=== PATIENT | female | born 1995 | race African-American/Black ===

== ENCOUNTER 2020-11-21 08:36 | Emergency (ER) | payer OTHER, SELFPAY ==
[2020-11-21 08:48] VITALS: BP 124/84; PULSE 90; RESP 20; TEMP 38.2; O2SAT 99
[2020-11-21] MEDS: KETOROLAC 30 MG/ML VIAL (*BKC) IV PUSH (09:19)
[2020-11-21] MEDS: ONDANSETRON INJ 4 MG/2 ML VIAL IV PUSH (09:20)
[2020-11-21] MEDS: SODIUM CHLORIDE 0.9% IV 1,000 ML 999 ML IV CONT (09:22)
[2020-11-21 09:47] LABS: Basophils Percent Auto 0.4 % (0.2-1.2); Eosinophils Percent Auto 0.4 % (0-4.4); Hematocrit 40.8 % (37.0-47.0); Hemoglobin 12.3 g/dL (12.0-15.0); Immature Granulocyte Absolute 0.01 K/mm3 (0.00-0.031); Immature Granulocyte Percent A 0.4 % (0-0.5); Lymphocytes Absolute Auto 1.08 K/mm3 (0.9-3.2); Lymphocytes Percent Auto 38.7 % (18.3-44.2); Mean Corpuscular HGB Conc 30.1 g/dl (32-36); Mean Corpuscular Hemoglobin 24.7 pg (26-34); Mean Corpuscular Volume 82.1 fl (80-100); Mean Platelet Volume 11.2 fl (7.4-10.4); Monocytes Absolute Auto 0.3 K/mm3 (0.1-0.6); Monocytes Percent Auto 12.2 % (2.6-8.5); Neutrophils Absolute Auto 1.3 K/mm3 (1.3-6.7); Neutrophils Percent Auto 47.9 % (45.5-73.1); Platelet Count Result 200 k/mm3 (150-375); Red Blood Count 4.97 M/mm3 (4.2-5.4); Red Cell Distribution Width 14.3 % (11.5-14.5); White Blood Count 2.8 K/mm3 (4.5-10.0)
[2020-11-21 09:55] LABS: Alanine Aminotransferase 10 U/L (4-35); Albumin Level 4.1 g/dL (3.5-5.1); Alkaline Phosphatase 74 U/L (38-126); Anion Gap 9 mmol/L (8-16); Aspartate Amino Transferase 23 U/L (14-36); Bilirubin,Total 0.3 mg/dL (0.2-1.3); Blood Urea Nitrogen 6 mg/dL (7-17); Calcium 8.8 mg/dL (8.4-10.2); Carbon Dioxide 22 mmol/L (22-30); Chloride 103 mmol/L (98-107); Estimated CRCL calculation 113 ml/min; Estimated Glomerular Filt Rate > 60; Glucose 90 mg/dL (65-110); Potassium 3.4 mmol/L (3.4-5.0); Sodium 134 mmol/L (137-145)
[2020-11-21 10:19] LABS: EDCOVIDSCREEN Positive (Negative)
--- NOTE | 2020-11-21 10:27 | ED.FEVER ---
HPI - Fever General Chief Complaint: Fever Stated Complaint: Headache Time Seen by Provider: 11/21/20 08:41 History of Present Illness HPI Narrative: Patient is a 25-year-old female who presents ER with fever and cough. Fever ongoing over the last day cough going on for last 3 to 4 days. No chest pain or chest pressure. No known sick contacts. She is not vaccinated for Covid. No loss of taste or smell. She does work in healthcare. Patient reports has been having mild headache associated with this is throbbing. She takes Tylenol which improves her headache but then will come back. Related Data Home Medications Medication Instructions Recorded Confirmed Nexplanon 11/21/20 calcium citrate mg PO 11/21/20 lactobacillus combination no.8 cell 11/21/20 [Adult Probiotic] multivitamin,qx-swei-dfiastrg tablet 11/21/20 [A/B/C/D-E Vitamins] omeprazole PO 11/21/20 Allergies Allergy/AdvReac Type Severity Reaction Status Date / Time No Known Allergies Allergy Verified 11/21/20 08:53 Review of Systems Review of Systems: All systems reviewed & are unremarkable except as noted in HPI and below Constitutional: Constitutional: Denies chills and Reports fever(s) ENT: Reports nasal congestion and Denies sore throat Cardiovascular: Cardiovascular: Denies chest pain and Denies radiating jaw, neck or arm pain Respiratory: Respiratory: Reports cough, Denies dyspnea and Denies wheezing Musculoskeletal: Musculoskeletal: Denies back pain, Reports myalgias and Denies muscle cramps Neurologic: Reports headache(s), Denies focal weakness and Denies numbness PMFSH Past Medical History Medical History (Updated 11/21/20 @ 10:34 by Kb Garibay MD) Healthy female adult Surgical History Surgical History (Updated 11/21/20 @ 10:32 by Kb Garibay MD) No history of previous surgery Exam Narrative: GENERAL: Well-appearing, well-nourished, and in no acute distress. HEAD: Normocephalic, atraumatic. CHEST: Clear to auscultation. No respiratory distress. HEART: Regular rate and rhythm. Normal peripheral pulses. ABDOMEN: Soft, nontender, nondistended. EXTREMITIES: Normal range of motion. No edema. SKIN: Warm, dry, no rash. NEURO: Alert and oriented x3. PSYCH: Normal mood and affect. Course Course Emergency Course: Patient informed results. Discharge home. Vital Signs Vital signs: Vital Signs Temperature 100.7 F H 11/21/20 08:48 Pulse Rate 90 11/21/20 08:48 Respiratory Rate 20 11/21/20 08:48 Blood Pressure 124/84 11/21/20 08:48 Pulse Oximetry 99 11/21/20 08:48 Temperature 100.7 F H 11/21/20 08:48 Pulse Rate 90 11/21/20 08:48 Respiratory Rate 20 11/21/20 08:48 Blood Pressure 124/84 11/21/20 08:48 Pulse Oximetry 99 11/21/20 08:48 MDM - Fever Lab Data Result diagrams: 11/21/20 09:28 11/21/20 09:28 Labs: Lab Results 11/21/20 11/21/20 11/21/20 Range/Units 09:28 09:28 09:52 WBC 2.8 L (4.5-10.0) K/mm3 RBC 4.97 (4.2-5.4) M/mm3 Hgb 12.3 (12.0-15.0) g/dL Hct 40.8 (37.0-47.0) % MCV 82.1 (80-100) fl MCH 24.7 L (26-34) pg MCHC 30.1 L (32-36) g/dl RDW 14.3 (11.5-14.5) % Plt Count 200 (150-375) k/mm3 MPV 11.2 H (7.4-10.4) fl Immature Gran % (Auto) 0.4 (0-0.5) % Neut % (Auto) 47.9 (45.5-73.1) % Lymph % (Auto) 38.7 (18.3-44.2) % [place] % (Auto) 12.2 H (2.6-8.5) % Eos % (Auto) 0.4 (0-4.4) % Baso % (Auto) 0.4 (0.2-1.2) % Lymph # (Auto) 1.08 (0.9-3.2) K/mm3 [place] # (Auto) 0.3 (0.1-0.6) K/mm3 Eos # (Auto) 0.0 (0-0.3) K/mm3 Baso # (Auto) 0.0 (0.0-0.1) K/mm3 Abs Immat Gran (auto) 0.01 (0.00-0.031) K/mm3 Absolute Neuts (auto) 1.3 (1.3-6.7) K/mm3 Absolute Nucleated RBC 0.0 (0.0-0.012) K/mm3 Nucleated RBC % 0.0 (0.0-0.2) % Sodium 134 L (137-145) mmol/L Potassium 3.4 (3.4-5.0) mmol/L Chloride 103 (98-107) mmol/L
[2020-11-21 10:54] VITALS: BP 116/74; PULSE 60; RESP 16; O2SAT 99
== END 2020-11-21 10:55 | disposition home or self-care (01) ==
PROVIDERS: Emergency Provider Emergency Medicine
DX: U07.1 COVID-19 (principal)
CPT/HCPCS: 36415; 80053; 85025; 87426; 96361; 96374; 99284; C9803; J1885; J2405; J7030

== ENCOUNTER 2021-05-10 01:57 | Day surgery (SDC) | payer OTHER, SELFPAY ==
--- NOTE | 2021-05-06 09:21 | PC.NURSE ---
Report to the Outpatient Waiting Room, entrance under the green pavilion located off [facility], at time __0900 on date __05/10/21 . OR Time: ___1100 . - You and your visitor will be asked a series of questions to screen for COVID 19 for your protection. - A mask is required within the hospital. Preoperative COVID Testing Requirements: No COVID Test needed if: (proof is required; if not received patient will have Rapid Test prior to entry) - Patient has received COVID Vaccine at least 14 days prior to procedure date or - Patient has positive COVID test result within last 90 days of surgery date. COVID Test needed if above criteria is not met If not COVID vaccinated a COVID test must be conducted within 72 hours of surgery and patient is asked to isolate self from time of testing until procedure. You will go to the [facility] for your COVID testing. The [facility] site is located at the corner of [address] from [facility]. You will only be called if COVID results are positive and your surgeon may reschedule your elective surgery date. Patients may have clear liquids (water, carbonated beverages, clear teas, apple juice) until 3 hours prior to surgery with a maximum of 20 ounces. - No food from midnight until time of surgery - Infants may have breast milk until 4 hours before surgery, formula 6 hours prior to surgery. - Children will be allowed to drink immediately following surgery. If applicable, please bring a bottle or sippy cup to assist with drinking. Juice, water, soda, and popsicles are readily available. For infants on formula, please bring formula the day of surgery. Pacifiers are allowed. Take the following medications with a SIP of water the morning of surgery: NONE Medications to discontinue per physician VITAMINS AND SUPPLIMENTS Date to take last dose 05/07/21 Please no make-up, nail kenyan, hairspray, perfume, deodorant, or body powder the day of surgery. No jewelry (including any body piercings) or valuables the day of surgery, leave them at home. Please take a shower or bath the night before, or the morning of, surgery with an antibacterial soap. Wear comfortable, loose fitting clothing. Children are encouraged to wear pajamas. - Jewelry must be removed prior to entering the operating room. Rings and piercings that are not removed may be cut off. - The hospital will not accept responsibility for valuables. - Please leave all valuables, including medications, at home the day of surgery. If you are going home after surgery, a licensed courier delivery driver must drive you home. - NO public transportation without another adult. - We recommend that an adult stay with you for 24 hours following discharge. - We also recommend that you do not drive, make important decision, drink alcoholic beverages, or take any drugs that were not prescribed by your health care provider for at least 24 hours after your discharge time. For Pediatric surgeries, we recommend two adults accompany the child home (only one inside the building at this time). One visitor will be allowed to accompany the patient into the hospital. Patients visitor will be instructed to remain with patient at all times or leave the building. We will allow the visitor to come back to the postoperative area when patient is ready. Follow any additional instructions given to you from your surgeon. Telephone instructions given to ____PATIENT and asked if any additional questions and then verbalized understanding. Patient advised to call surgeon office or pre surgery nurse liaison [phone] if any additional questions.
[2021-05-06 09:38] VITALS: BMI 32.3
--- NOTE | 2021-05-08 07:55 | P.HP_ITS ---
H&P: HPI History of Present Illness Date/Time: 04/17 [age] is a [age]-year-old 1 para 1 admitted for LEEP pro cedure secondary to a colposcopically directed biopsy which showed high-grade PATRICK. She has a history of recurrent high-grade dysplasia. She understands the risks and benefits of this procedure in full. The risk of weakness of the cervix with cervical incompetence versus scarring was also reviewed. She had all questions answered and asked to proceed 06/04 07:55 Chief Complaint: High-grade PATRICK Review of Systems Review of Systems: All systems reviewed & are unremarkable except as noted in HPI and below PMFSH Past Medical History Medical History Healthy female adult Surgical History Surgical History No history of previous surgery Social History Social History Smoking status: Former smoker Alcohol intake: current Drinks per week: 1 Substance use: former Substance use type: other Other substance usage details: USED A HOUKA SEVERAL TIMES IN THE PAST Living arrangements: with family Meds Home Medications and Allergies Home Medications Medication Instructions Recorded Confirmed Type Nexplanon 11/21/20 History calcium citrate 500 mg PO DAILY 11/21/20 05/06/21 History multivitamin,xg-ayfj-jzsiwrxj 1 tablet PO DAILY 11/21/20 05/06/21 History [A/B/C/D-E Vitamins] ergocalciferol (vitamin D2) 50,000 unit PO WEEKLY 05/06/21 05/06/21 History [Vitamin D2] ferrous sulfate 325 mg PO DAILY 05/06/21 05/06/21 History Allergies Allergy/AdvReac Type Severity Reaction Status Date / Time No Known Allergies Allergy Verified 11/21/20 08:53 Exam Const: General: no acute distress Eyes: General: appearance normal, both eyes and all related structures Neck: Neck: supple and no JVD Thyroid: thyroid normal Resp: Effort & Inspection: normal respiratory effort Auscultation: clear to auscultation bilaterally Cardio: Rate: regular rate Rhythm: regular rhythm GI: Inspection: non-distended GI Palp: Yes Soft to palpation, No Tenderness to palpation present (GI) and No Guarding due to palpation present (GI) Auscultation: normal bowel sounds : General: Yes bladder normal to palpation External Female Exam: normal external appearance Speculum Exam - Vagina: normal vaginal discharge and No vaginal bleeding Speculum Exam - Cervix: nontender Bimanual exam- vagina & uterus: bladder normal to palpation and No Cervical tenderness present OB/external & speculum: No vaginal bleeding Skin: General skin exam: no rashes or lesions noted Extrem: General: normal to inspection and no edema Psych: Mental Status: mental status grossly normal Affect: normal affect Assessment and Plan Additional Plan Impression: High-grade PATRICK recurrent Plan: LEEP procedure
--- NOTE | 2021-05-10 06:41 | WPDHPUPDATE1 ---
History and Physical Update Update Date/Time: 05/10/21 06:41 History and Physical has been reviewed, including an updated exam of the patient. There are NO changes in the patient's condition. Risks, benefits, and alternatives have been discussed and questions answered. Patient agrees to proceed with procedure.
[2021-05-10] MEDS: ACETAMINOPHEN 500 MG TABLET 1000 MG PO (09:09)
[2021-05-10 09:35] LABS: Hematocrit 36.3 % (37.0-47.0); Hemoglobin 11.4 g/dL (12.0-15.0)
[2021-05-10] MEDS: LACTATED RINGERS 1,000 ML 30 ML IV CONT (09:35)
[2021-05-10 09:37] VITALS: BP 90/56; PULSE 62; RESP 16; TEMP 36.6; O2SAT 100
--- NOTE | 2021-05-10 09:48 | P.PNAN_ITS ---
Anes - Initial Pre Proc Eval Procedure: Operation Date: 05/10/21 11:00 Proposed Procedures p Loop Electrical Excision Procedure - Thomas Masterson MD Date/Time: 05/10/21 09:48 Surgeon: Thomas Masterson MD Pre Op Diagnosis: Abnormal Pap Patient Data Age: 25 Gender: F Height: 1.63 m Weight: 87.4 kg Last Vital Signs Temp 36.6 C 05/10/21 09:37 Pulse 62 05/10/21 09:37 Resp 16 05/10/21 09:37 BP 90/56 L 05/10/21 09:37 Pulse Ox 100 05/10/21 09:37 Allergies Allergy/AdvReac Type Severity Reaction Status Date / Time No Known Allergies Allergy Verified 05/10/21 09:06 Home Medications Medication Instructions Recorded Confirmed Type Nexplanon 11/21/20 History calcium citrate 500 mg PO DAILY 11/21/20 05/10/21 History multivitamin,dw-crgq-epotqenj 1 tablet PO DAILY 11/21/20 05/10/21 History [A/B/C/D-E Vitamins] ergocalciferol (vitamin D2) 50,000 unit PO WEEKLY 05/06/21 05/10/21 History [Vitamin D2] ferrous sulfate 325 mg PO DAILY 05/06/21 05/10/21 History hydrocodone-acetaminophen 1 tablet PO Q4H PRN #20 tablet 05/10/21 Rx Laboratory Tests 05/10/21 09:28 Hgb 11.4 g/dL L g/dL (12.0-15.0) Hct 36.3 % L % (37.0-47.0) Patient hx anesthesia problems: none Family hx anesthesia problems: none Results Review: All pre-operative results and documents have been reviewed as part of the pre-operative evaluation. [facility] Past Medical History Medical History (Updated 05/10/21 @ 09:48 by Thomas Azul MD) Obesity Surgical History Surgical History (Updated 05/10/21 @ 09:48 by Thomas Azul MD) S/P gastric sleeve procedure Social History Social History Smoking status: Former smoker Alcohol intake: current Drinks per week: 1 Substance use: former Substance use type: other Other substance usage details: USED A HOUKA SEVERAL TIMES IN THE PAST Living arrangements: with family Mitchell Wallis Final PreProcedure Day of Procedure 05/10/21 09:48 Patient weight: obese Heart: regular rate and rhythm Lungs: clear to auscultation Airway: Mallampati scale class II Neurological: alert and oriented Last oral intake: >/= 8 hours ASA classification: II Emergent: no Anesthetic plan: proceed Anesthesia type and monitoring: general GIVS and standard monitoring Results Review: All pre-operative results and documents have been reviewed as part of the pre-operative evaluation. Informed Consent: The patient's anesthetic plan and its attendant risks and benefits were discussed with the patient/family/POA. Questions were solicited and answers provided to the satisfaction of the patient/family/POA.
--- NOTE | 2021-05-10 10:58 | W.PM.PROC2 ---
Procedure Note - Detailed Date of Procedure 05/10/21 Pre-op Diagnosis Abnormal Pap Post-op Diagnosis same Procedure Performed LEEP procedure Surgeon Thomas Masterson MD Anesthesia MAC and local Indications This is a 25-year-old female with high-grade PATRICK Findings Parous looking cervix. Description of Procedure The patient is prepped draped in the normal sterile fashion placed in the dorsal lithotomy position. Under excellent IV sedation weighted speculum placed posterior fornix vagina. Anterior lip of the cervix grasped with single-tooth tenaculum and a circumferential placement of a 10cc of 1% xylocaine anesthesia placed. The LEEP instrument set at 4 545 brought across the transformation zone removing the entire transformation zone in 2 pieces. The base was burned with ball cautery at 45 w per 2nd blood loss was estimated at5cc. All sponge, needle, instrument counts were correct Estimated Blood Loss 5 Drains No Packing No Pathology yes Complications No immediate complications Condition stable
[2021-05-10 11:01] VITALS: BP 124/75; PULSE 66; RESP 16; O2SAT 100
[2021-05-10 11:31] VITALS: BP 110/75; PULSE 66; RESP 16
[2021-05-10 11:45] VITALS: BP 118/72; PULSE 65; RESP 16
== END 2021-05-10 11:55 | disposition home or self-care (01) ==
PROVIDERS: Visit Provider Obstetrics & Gynecology
PROC: 0UBC7ZZ Excision of Cervix, Via Natural or Artificial Opening (ICD-10-PCS; CPT 57522; principal; 2021-05-10 11:00)
DX: R87.613 High grade squamous intraepithelial lesion on cytologic smear of cervix (HGSIL) (principal); N72 Inflammatory disease of cervix uteri; E66.9 Obesity, unspecified; Z68.33 Body mass index [BMI] 33.0-33.9, adult; Z87.891 Personal history of nicotine dependence
CPT/HCPCS: 57522; 36415; 85014; 85018; 88305; A9270; J1100; J2250; J2270; J2405; J2704; J7120

== ENCOUNTER 2023-03-18 14:00 | Emergency (ER) | payer OTHER, SELFPAY ==
[2023-03-18] VITALS (7 sets, daily range): BP systolic 112–136; BP diastolic 68–90; PULSE 60–81; RESP 17–20; TEMP 36.4; O2SAT 100
--- NOTE | ~2023-03-18 | XR_ITS ---
EXAMINATION: XR chest 2V DATE: 03/18/2023 15:17 INDICATION: Chest pain. Palpitations. Shortness of breath. TECHNIQUE: Frontal and lateral views of the chest were obtained. COMPARISON: None. FINDINGS: There is no pneumonia, pleural effusion, or pneumothorax. The heart size is normal. IMPRESSION: 1. No acute cardiopulmonary disease. Reviewed, dictated and finalized at location [facility]
--- NOTE | 2023-03-18 14:04 | ECG_ITS ---
Measurements Intervals Damar Rate: 73 P: 68 [place]: 141 QRS: 27 QRSD: 78 T: 8 QT: 371 QTc: 410 Interpretive Statements SINUS RHYTHM WITH SINUS ARRHYTHMIA ATRIAL AND VENTRICULAR PREMATURE COMPLEXES BORDERLINE ECG NO PREVIOUS ECG AVAILABLE FOR COMPARISON Electronically Signed On 03-18-2023 14:17:33 DRESS FITTER by Kulwant Rick D.O.
[2023-03-18 14:39] LABS: Basophils Percent Auto 0.8 % (0.2-1.2); Eosinophils Absolute Auto 0.1 K/mm3 (0-0.3); Eosinophils Percent Auto 1.7 % (0-4.4); Hematocrit 36.9 % (37.0-47.0); Hemoglobin 11.2 g/dL (12.0-15.0); Immature Granulocyte Absolute 0.02 K/mm3 (0.00-0.031); Immature Granulocyte Percent A 0.4 % (0-0.5); Lymphocytes Absolute Auto 1.95 K/mm3 (0.9-3.2); Lymphocytes Percent Auto 36.6 % (18.3-44.2); Mean Corpuscular HGB Conc 30.4 g/dl (32-36); Mean Corpuscular Hemoglobin 25.4 pg (26-34); Mean Corpuscular Volume 83.7 fl (80-100); Mean Platelet Volume 11.1 fl (7.4-10.4); Monocytes Absolute Auto 0.4 K/mm3 (0.1-0.6); Monocytes Percent Auto 7.1 % (2.6-8.5); Neutrophils Absolute Auto 2.9 K/mm3 (1.3-6.7); Neutrophils Percent Auto 53.4 % (45.5-73.1); Platelet Count Result 272 k/mm3 (150-375); Red Blood Count 4.41 M/mm3 (4.2-5.4); Red Cell Distribution Width 13.2 % (11.5-14.5); White Blood Count 5.3 K/mm3 (4.5-10.0)
[2023-03-18 14:49] LABS: INR 1.1; Prothrombin Time 14.4 Seconds (11.1-14.7)
[2023-03-18 14:50] LABS: Partial Thromboplastin Time 30.8 SECONDS (22.3-36.8)
[2023-03-18 14:54] LABS: Alanine Aminotransferase 13 U/L (6-35); Albumin Level 4.2 g/dL (3.5-5.1); Alkaline Phosphatase 74 U/L (38-126); Anion Gap 9 mmol/L (8-16); Aspartate Amino Transferase 21 U/L (14-36); Bilirubin,Total 0.4 mg/dL (0.2-1.3); Blood Urea Nitrogen 8 mg/dL (7-17); Calcium 9.5 mg/dL (8.4-10.2); Carbon Dioxide 25 mmol/L (22-30); Chloride 103 mmol/L (98-107); Estimated CRCL calculation 117 ml/min; Estimated Glomerular Filt Rate > 60; Glucose 105 mg/dL (65-110); Lipase 205 U/L (23-300); Potassium 3.6 mmol/L (3.4-5.0); Sodium 137 mmol/L (137-145)
[2023-03-18 15:05] LABS: Troponin I < 0.012 ng/mL (0.000-0.034)
--- NOTE | 2023-03-18 17:15 | ED.GENADULT ---
[facility] - General Adult General Chief complaint: Chest Pain Stated complaint: chest pain Time Seen by Provider: 03/18/23 15:25 Source: patient Mode of arrival: ambulatory Limitations: no limitations History of Present Illness HPI narrative: This is a 27-year-old female who presents to the ED with chief complaint of 2 weeks of intermittent chest pain and shortness of breath. She reports these episodes last for about 10 minutes at a time. It causes her to feel short of breath. She also reports intermittent palpitations. Denies any recent illness. Denies fevers, chills, blood clot history, recent travel immobilization, cough, nausea, vomiting, syncope, diaphoresis. Related Data Home Medications Medication Instructions Recorded Confirmed Nexplanon 11/21/20 calcium citrate 500 mg (2,376 mg) 500 mg PO DAILY 11/21/20 05/10/21 effervescent tablet multivitamin,ya-ysnd-hihzxwws 1 tablet PO DAILY 11/21/20 05/10/21 ergocalciferol (vitamin D2) 25,000 50,000 unit PO WEEKLY 05/06/21 05/10/21 unit capsule ferrous sulfate 325 mg (65 mg 325 mg PO DAILY 05/06/21 05/10/21 iron) tablet Allergies Allergy/AdvReac Type Severity Reaction Status Date / Time No Known Allergies Allergy Verified 03/18/23 14:27 Review of Systems Review of Systems: All systems as dictated in [facility] Past Medical History Medical History (Updated 03/18/23 @ 17:46 by Bassem Pascual PA-C) Obesity Surgical History Surgical History (Updated 05/10/21 @ 09:48 by Thomas Azul MD) S/P gastric sleeve procedure Social History Social History Smoking status: Former smoker Alcohol intake: current Drinks per week: 1 Substance use: former Substance use type: other Other substance usage details: USED A HOUKA SEVERAL TIMES IN THE PAST Living arrangements: with family Exam Narrative: GENERAL: Well-appearing, well-nourished, and in no acute distress. HEAD: Normocephalic, atraumatic. EYES: PERRLA and EOMI. ENT: Nares clear, no rhinorrhea or epistaxis. Mucous membranes moist. Oropharynx without tonsillar hypertrophy exudate or other lesions. NECK: Supple. No adenopathy or masses. CHEST: No respiratory distress. Clear to auscultation. No wheezes rales or rhonchi. mild sternal tenderness. HEART: Regular rate and rhythm. No murmur heard. Normal peripheral pulses. ABDOMEN: Soft, nontender, nondistended, normal active bowel sounds. MSK: Normal range of motion. No edema. SKIN: Warm, dry, no rash. NEURO: Alert and oriented x4. No focal deficits. PSYCH: Normal mood and affect. Course Vital Signs Vital signs: Vital Signs Temperature 97.6 F 03/18/23 14:26 Pulse Rate 81 03/18/23 14:26 Respiratory Rate 18 03/18/23 14:26 Blood Pressure 112/68 03/18/23 14:26 Pulse Oximetry 100 03/18/23 14:26 Temperature 97.6 F 03/18/23 14:26 Pulse Rate 60 03/18/23 18:01 Respiratory Rate 20 03/18/23 18:01 Blood Pressure 122/79 03/18/23 18:01 Pulse Oximetry 100 03/18/23 18:01 Medical Decision Making MDM Narrative Medical decision making narrative: This is a 27-year-old female with no pertinent PMH presents to the ED with chief complaint of chest pain on and off for the past 2 weeks. Vitals are normal. Exam intact. Mild tenderness to the sternal area. ECG shows sinus rhythm with sinus arrhythmia and occasional PVCs. Chest x-ray is normal. Lab work is largely unremarkable. Serial troponins are negative. She is PERC rule negative. low concern for ACS or PE given these findings. symptoms most likely consistent with musculoskeletal pain versus anxiety versus pleurisy. Pt will be discharged in stable condition. Return precautions given and supportive measures discussed. Pt is understanding and agreeable with plan for discharge and follow-up with PCP. Vital Signs Vital Signs: Vital Signs Temperature 97.6 F 03/18/23 14:26 Pulse
[2023-03-18 18:09] LABS: Troponin I < 0.012 ng/mL (0.000-0.034)
== END 2023-03-18 18:16 | disposition home or self-care (01) ==
PROVIDERS: Emergency Medicine; Emergency Provider Physician Assistant
DX: R07.9 Chest pain, unspecified (principal); R00.2 Palpitations; E66.9 Obesity, unspecified; Z68.37 Body mass index [BMI] 37.0-37.9, adult; Z98.84 Bariatric surgery status; Z87.891 Personal history of nicotine dependence; I49.1 Atrial premature depolarization; I49.3 Ventricular premature depolarization
CPT/HCPCS: 36415; 71046; 80053; 83690; 84484; 85025; 85610; 85730; 93005; 99284